=== PATIENT | female | born 1975 | race Caucasian/White ===

== ENCOUNTER 2016-12-16 12:49 | Emergency (ER) | payer MEDICAID ==
[2016-12-16 12:49] VITALS: BMI 24.7
[2016-12-16 12:55] VITALS: BP 134/85; PULSE 85; RESP 18; TEMP 97.9; O2SAT 98
--- NOTE | 2016-12-16 13:59 | RAD ---
PROCEDURE: Radiographs of the Lumbar Spine. HISTORY: upper lumbar pain s/p fall, ecchymosis COMPARISON: Lumbar spine radiographs performed 10/15/13, lumbar spine as seen on CT performed 07/08/15 FINDINGS: BONES: Alignment appears satisfactory. No listhesis. No acute displaced fracture identified. DISC SPACES: Unremarkable. OTHER FINDINGS: Right upper quadrant surgical clips. Moderate constipation. IMPRESSION: No acute displaced fracture or subluxation identified. Moderate constipation. Right upper quadrant surgical clips.
--- NOTE | 2016-12-16 14:38 | C.PDOC ---
History Of Present Illness 41 year old female presents to the ED with complaints of lower back pain that radiates to the right side since yesterday. Patient states while at work, she tripped over a broom and fell on her back. She denies numbness, tingling, or other complaints at this time. Time Seen by Provider: 12/16/16 13:05 Chief Complaint (Nursing): Back Pain History Per: Patient History/Exam Limitations: no limitations Onset/Duration Of Symptoms: Days (1 day ) Current Symptoms Are (Timing): Still Present Quality Of Discomfort: "Pain" Previous Symptoms: None Associated Symptoms: None Recent travel outside of the [place]: No Past Medical History Reviewed: Historical Data, Nursing Documentation, Vital Signs Vital Signs: Last Vital Signs Temp 97.9 F 12/16/16 12:54 Pulse 85 12/16/16 12:54 Resp 18 12/16/16 12:54 BP 134/85 12/16/16 12:54 Pulse Ox 98 12/16/16 15:55 - Medical History PMH: Asthma, Back Problems (Herniated Disc), Gall Bladder Disease, Kidney Stones (Right Kidney (2013)), Chronic Kidney Disease Surgical History: Cholecystectomy (2009) - [facility] Procedures ESOPHAGOGASTRODUODENOSCOPY [EGD] W/CLOSED BIOPSY (09/24/14) PHYSICAL THERAPY NEC (09/24/13) Family History: States: Unknown Family Hx - Social History Hx Tobacco Use: Yes Hx Alcohol Use: No Hx Substance Use: No - Immunization History Hx Tetanus Toxoid Vaccination: No Hx Influenza Vaccination: No Hx Pneumococcal Vaccination: No Review Of Systems Constitutional: Negative for: Fever, Chills Cardiovascular: Negative for: Chest Pain Respiratory: Negative for: Shortness of Breath Gastrointestinal: Negative for: Nausea, Vomiting Musculoskeletal: Positive for: Back Pain Physical Exam - Physical Exam Appears: Well, Non-toxic, No Acute Distress Skin: Warm, Dry, Ecchymosis (midline lumbar area ) Head: Atraumatic, Normacephalic Eye(s): bilateral: Normal Inspection Back: Vertebral Tenderness (lumbar midline tenderness with ecchymosis ), Other ( Tenderness to the coccyx) Extremity: Normal ROM Neurological/Psych: Oriented x3, Normal Speech, Normal Cognition, Normal Motor, Normal Sensation Gait: Steady ED Course And Treatment O2 Sat by Pulse Oximetry: 98 (room air ) - Other Rad LS spine X-Ray X-Ray: Viewed By Me, Read By Radiologist Interpretation: FINDINGS: BONES: Alignment appears satisfactory. No listhesis. No acute displaced fracture identified. DISC SPACES: Unremarkable. OTHER FINDINGS: Right upper quadrant surgical clips. Moderate constipation. IMPRESSION: No acute displaced fracture or subluxation identified. Moderate constipation. Right upper quadrant surgical clips. Progress Note: LS spine X-ray was ordered and patient was given Toradol. Medical Decision Making Medical Decision Making: no fx noted on xray, will d/c pt with nsaids and colace for constipation, advise don high fiber diet. Disposition Counseled Patient/Family Regarding: Diagnosis, Need For Followup, Rx Given - Disposition Referrals: Shaik Bowens MD [Staff Provider] - Disposition: HOME/ ROUTINE Disposition Time: 14:36 Condition: IMPROVED Additional Instructions: Follow up with your doctor next week. Take ibuprofen (with food) as prescribed. Cold compress to lower back several times a day. Avoid heavy lifting. Return to ER for any worsening symptoms. 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 - Scribe Statement The provider has reviewed the documentation as recorded by the Scribe Sonia Post All medical record entries made by the [place] were at my direction and personally dictated by me. I have reviewed the chart and agree that the record accurately reflects my personal performance of the history, physical exam, medical decision making, and the department course for this patient. I have also personally directed, reviewed, and agree with the discharge instructions and disposition.
== END 2016-12-16 14:50 | disposition home or self-care (01) ==
LOC: C.ER 12:49
DX: M54.5 Low back pain (principal); W10.9XXA Fall (on) (from) unspecified stairs and steps, initial encounter
CPT/HCPCS: 72100; 96372; 99283; J1885

== ENCOUNTER 2017-06-22 09:16 | Emergency (ER) | payer MEDICAID ==
[2017-06-22 09:16] VITALS: BMI 24.7
[2017-06-22 09:48] VITALS: PULSE 93; TEMP 98; O2SAT 100
[2017-06-22] MEDS ORDERED: Albuterol 0.083% Inhal Sol (2.5 mg/3 mL) UD INH STA (09:54)
--- NOTE | 2017-06-22 09:54 | C.PDOC ---
History Of Present Illness 42 year old female with PMHx of asthma presents to the ED for evaluation of her asthma worsening. Patient reports she noted increased use of her inhaler over the past 4 days, patient reports she went to her PMD 2 days ago who placed her on inhaler steroid. Patient reports no improvement to her symptoms, she has been using her inhaler 4 times more than usual. Patient states she has trouble mechanically operating her steroid inhaler. Patient thinks the change in weather affected her asthma. Patient denies fever, chills, nausea, vomit, admissions for asthma. Time Seen by Provider: 06/22/17 09:46 Chief Complaint (Nursing): Chest Pain History Per: Patient History/Exam Limitations: no limitations Onset/Duration Of Symptoms: Days Current Symptoms Are (Timing): Gone Initiating Event: Upper Respiratory Illness Quality: Other Exacerbating Factor(s): Exertion Current Respiratory Medications: See Home Med List Reports Recently: Treated By A Physician Recent travel outside of the [place]: No Additional History Per: Patient Past Medical History Vital Signs: Last Vital Signs Temp 98.0 F 06/22/17 09:46 Pulse 93 H 06/22/17 11:02 Resp 18 06/22/17 11:02 BP 124/82 06/22/17 11:02 Pulse Ox 100 06/22/17 11:02 - Medical History PMH: Asthma, Back Problems (Herniated Disc), Gall Bladder Disease, Kidney Stones (Right Kidney (2013)), Chronic Kidney Disease Surgical History: Cholecystectomy (2009) - [facility] Procedures ESOPHAGOGASTRODUODENOSCOPY [EGD] W/CLOSED BIOPSY (09/24/14) PHYSICAL THERAPY NEC (09/24/13) Family History: States: Unknown Family Hx - Social History Hx Tobacco Use: Yes Hx Alcohol Use: No Hx Substance Use: No - Immunization History Hx Tetanus Toxoid Vaccination: No Hx Influenza Vaccination: No Hx Pneumococcal Vaccination: No Review Of Systems Constitutional: Negative for: Fever, Chills ENT: Negative for: Mouth Swelling, Throat Pain Respiratory: Positive for: Cough, Shortness of Breath Gastrointestinal: Negative for: Nausea, Vomiting, Abdominal Pain Skin: Negative for: Rash Neurological: Negative for: Weakness, Numbness Physical Exam - Physical Exam Appears: Non-toxic, Other (Mild respiratory distress) Skin: Normal Color, Warm, Dry Head: Atraumatic, Normacephalic Eye(s): bilateral: Normal Inspection Ear(s): Bilateral: Normal Nose: No Discharge, No Deformity Oral Mucosa: Moist Throat: Normal, No Erythema, No Exudate Neck: Normal ROM, Supple Chest: Symmetrical Cardiovascular: Rhythm Regular, No Murmur Respiratory: Wheezing (B/L faint inspiratory and expiratory), Other (decreased air movement ) Gastrointestinal/Abdominal: Soft, No Tenderness, No Guarding, No Rebound Extremity: Normal ROM, No Tenderness, No Swelling Neurological/Psych: Oriented x3 Gait: Steady ED Course And Treatment ECG: Interpreted By Me, Viewed By Me ECG Rhythm: Sinus Rhythm Interpretation Of ECG: Normal intervals, normal axis, no acute ST or T wave changes Rate From EC O2 Sat by Pulse Oximetry: 100 (ON RA) Pulse Ox Interpretation: Normal Medical Decision Making Medical Decision Making: Impression: mild asthma exacerbation Plan: * Albuterol 5 mg INH * Prednisone 60 mg PO * Nebulizer treatment Disposition - Disposition Referrals: [facility] [Outside] Disposition: HOME/ ROUTINE Disposition Time: 20:36 Condition: GOOD Prescriptions: predniSONE [predniSONE Tab] 20 mg PO DAILY #5 tab Instructions: Asthma in Adults Forms: [facility] (Upper Sorbian), Work Excuse Print Language: TAJIK - Clinical Impression Clinical Impression: Asthma - Scribe Statement The provider has reviewed the documentation as recorded by the Scribe Zachary Mcwilliams All medical record entries made by the Scribe were at my direction and personally dictated by me. I have reviewed the chart and agree that the record accurately reflects my personal performance of the history, physical exam, medical decision making, and the department course for this patient. I have also personally directed, reviewed, and agree with the discharge instructions and disposition.
[2017-06-22] MEDS ORDERED: Albuterol 0.083% Inhal Sol (2.5 mg/3 mL) UD ONE (10:06)
[2017-06-22 11:02] VITALS: BP 124/82; RESP 18
== END 2017-06-22 11:03 | disposition home or self-care (01) ==
LOC: C.ER 09:16
DX: J45.909 Unspecified asthma, uncomplicated (principal)

== ENCOUNTER 2017-11-18 14:29 | Emergency (ER) | payer MEDICAID ==
[2017-11-18 14:29] VITALS: BMI 24.7
[2017-11-18] MEDS ORDERED: Sodium Chloride 0.9% 1,000 ML IV ONE (14:45)
--- NOTE | 2017-11-18 15:02 | C.PDOC ---
History Of Present Illness 42 y/o female, with Hx of chronic back pain, presents to ED c/o back pain and right sided abdominal pain for the last 4 days. Notes pain in intermittent but is worse today after lifting heavy objects. She reports associated nausea and dizziness. Denies fever, or other complaints. Time Seen by Provider: 11/18/17 14:39 Chief Complaint (Nursing): Abdominal Pain History Per: Patient History/Exam Limitations: no limitations Past Medical History Reviewed: Historical Data, Nursing Documentation, Vital Signs Vital Signs: Last Vital Signs Temp 98.0 F 11/18/17 17:01 Pulse 68 11/18/17 17:01 Resp 16 11/18/17 17:01 BP 116/81 11/18/17 17:01 Pulse Ox 100 11/18/17 17:01 - Medical History PMH: Asthma, Back Problems (Herniated Disc), Gall Bladder Disease (GB removed), Kidney Stones (Right Kidney (2013)), Chronic Kidney Disease Surgical History: Cholecystectomy (2009) - [facility] Procedures ESOPHAGOGASTRODUODENOSCOPY [EGD] W/CLOSED BIOPSY (09/24/14) PHYSICAL THERAPY NEC (09/24/13) Family History: States: Unknown Family Hx - Social History Hx Tobacco Use: Yes Hx Alcohol Use: No Hx Substance Use: No - Immunization History Hx Tetanus Toxoid Vaccination: No Hx Influenza Vaccination: Yes Hx Pneumococcal Vaccination: Yes Review Of Systems Except As Marked, All Systems Reviewed And Found Negative. Constitutional: Negative for: Fever, Chills Cardiovascular: Negative for: Chest Pain Respiratory: Negative for: Shortness of Breath Gastrointestinal: Positive for: Nausea, Abdominal Pain. Negative for: Diarrhea , Constipation Genitourinary: Negative for: Dysuria, Frequency, Incontinence, Hematuria Musculoskeletal: Positive for: Back Pain Neurological: Positive for: Dizziness. Negative for: Weakness, Numbness, Headache Physical Exam - Physical Exam Appears: Non-toxic, No Acute Distress Skin: Normal Color, Warm, Dry Head: Atraumatic, Normacephalic Eye(s): bilateral: Normal Inspection Oral Mucosa: Moist Neck: Normal ROM, Supple Cardiovascular: Rhythm Regular Respiratory: Normal Breath Sounds, No Rales, No Rhonchi, No Wheezing Gastrointestinal/Abdominal: Soft, Tenderness (mild right side of abdomen), No Guarding, No Rebound Back: CVA Tenderness (mild right) Extremity: Normal ROM, No Pedal Edema Neurological/Psych: Oriented x3, Normal Speech ED Course And Treatment - Laboratory Results Result Diagrams: 11/18/17 15:01 11/18/17 15:01 Lab Interpretation: Normal O2 Sat by Pulse Oximetry: 99 Pulse Ox Interpretation: Normal - CT Scan/US No standard instances Other Rad Studies (CT/US): Read By Radiologist, Radiology Report Reviewed CT/US Interpretation: FINDINGS: LOWER THORAX: Unremarkable. LIVER: Hepatic steatosis is noted without evidence of focal lesion. GALLBLADDER AND BILE DUCTS : Status post cholecystectomy. PANCREAS: Unremarkable. No gross lesion or ductal dilatation. SPLEEN: Unremarkable. ADRENALS: Unremarkable. No mass. KIDNEYS AND URETERS: Unremarkable. No hydronephrosis. No solid mass. VASCULATURE: Unremarkable. No aortic aneurysm. BOWEL: Unremarkable. No obstruction. No gross mural thickening. APPENDIX: Unremarkable. Normal appendix. PERITONEUM: Unremarkable. No free fluid. No free air. LYMPH NODES: Unremarkable. No enlarged lymph nodes. BLADDER: Unremarkable. REPRODUCTIVE : Unremarkable. BONES: No acute fracture. OTHER FINDINGS: None. IMPRESSION : No evidence of nephrolithiasis or hydronephrosis. No evidence of acute pathology in the abdomen and pelvis. Progress Note: Treated with IVF NSS and toradol. On re-evaluation abdomen soft , in no distress Reassessment Condition: Improved Medical Decision Making Medical Decision Making: Plan: Blood work Urinalysis Abd & Pelvis CT Toradol, IV fluids Disposition Counseled Patient/Family Regarding: Studies Performed, Diagnosis, Need For Followup, Rx Given - Disposition Referrals: Satish Dupont MD [Staff Provider] - Disposition: HOME/ ROUTINE Disposition Time: 16:45 Condition: STABLE Additional Instructions: Return to ED if any increase symptoms Prescriptions: Naproxen [Naprosyn] 1 tab PO BID PRN #25 tab PRN Reason: Pain Instructions: Acute Abdomen (Belly Pain), Adult (DC) Forms: [facility] (Armenian) - POA Present On Arrival: None - Clinical Impression Clinical Impression: Abdominal pain - 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 - Scribe Statement The provider has reviewed the documentation as recorded by the Scribe KP All medical record entries made by the Scribe were at my direction and personally dictated by me. I have reviewed the chart and agree that the record accurately reflects my personal performance of the history, physical exam, medical decision making, and the department course for this patient. I have also personally directed, reviewed, and agree with the discharge instructions and disposition.
[2017-11-18 15:04] LABS: BASO # 0.1 K/uL (0.0-0.2); BASO % 0.8 % (0.0-2.0); EOS # 0.5 K/uL (0.0-0.7); EOS % 7.1 % (0.0-4.0); HEMOGLOBIN 12.3 g/dL (11.0-16.0); LYMPH # 2.5 K/uL (1.0-4.3); LYMPH % 33.3 % (20.0-40.0); MEAN CELL VOLUME 87.7 fL (81.0-99.0); MEAN CORPUSCULAR HEMOGLOBIN 29.5 pg (27.0-31.0); MEAN CORPUSCULAR HGB CONC 33.6 g/dL (33.0-37.0); MEAN PLATELET VOLUME 9.5 fL (7.2-11.7); MONO # 0.5 K/uL (0.0-0.8); MONO % 7.3 % (0.0-10.0); NEUT # 3.8 K/uL (1.8-7.0); NEUT % 51.5 % (50.0-75.0); RBC 4.17 Mil/uL (3.80-5.20); RED CELL DISTRIBUTION WIDTH 14.4 % (11.5-14.5); WHITE BLOOD COUNT 7.5 K/uL (4.8-10.8)
[2017-11-18] MEDS ORDERED: Sodium Chloride 0.9% 1,000 ML ONE (15:09)
[2017-11-18 15:16] LABS: ALB/GLOB RATIO 1.4 (1.0-2.1); ALBUMIN 4.2 g/dL (3.5-5.0); ALT/SGPT 32 U/L (9-52); AST/SGOT 17 U/L (14-36); BLOOD UREA NITROGEN 11 mg/dL (7-17); CALCIUM 9.2 mg/dl (8.6-10.4); GFR AFRICAN-AMERICAN > 60; GFR NON-AFRICAN AMERICAN > 60; LIPASE 134 U/L (23-300)
[2017-11-18 15:20] LABS: SQUAMOUS EPITHIAL 6 /hpf (0-5); URINE BACTERIA RARE (<OCC); URINE BILIRUBIN NEGATIVE (NEGATIVE); URINE BLOOD NEGATIVE (NEGATIVE); URINE CLARITY Hazy (Clear); URINE COLOR Yellow (YELLOW); URINE GLUCOSE (UA) NORMAL (Normal); URINE HYALINE CAST 0-2 /lpf (0-2); URINE LEUKOCYTE ESTERASE 1+ Leu/uL (Negative); URINE PROTEIN NEGATIVE (NEGATIVE); URINE UROBILINOGEN NORMAL mg/dL (0.2-1.0)
[2017-11-18 15:21] LABS: HCG,QUALITATIVE URINE NEGATIVE (NEGATIVE)
--- NOTE | 2017-11-18 16:27 | CT ---
Date of service: 11/18/2017 PROCEDURE: CT Abdomen and Pelvis without intravenous contrast HISTORY: Pain COMPARISON: Comparison is made to the previous study dated 07/08/2015 TECHNIQUE: Axial and reformatted coronal and sagittal CT images of the abdomen and pelvis were obtained without IV or oral contrast administration.. Contrast dose: 0 Radiation dose: Total exam DLP = 493.39 mGy-cm. This CT exam was performed using one or more of the following dose reduction techniques: Automated exposure control, adjustment of the mA and/or kV according to patient size, and/or use of iterative reconstruction technique. FINDINGS: LOWER THORAX: Unremarkable. LIVER: Hepatic steatosis is noted without evidence of focal lesion. GALLBLADDER AND BILE DUCTS: Status post cholecystectomy. PANCREAS: Unremarkable. No gross lesion or ductal dilatation. SPLEEN: Unremarkable. ADRENALS: Unremarkable. No mass. KIDNEYS AND URETERS: Unremarkable. No hydronephrosis. No solid mass. VASCULATURE: Unremarkable. No aortic aneurysm. BOWEL: Unremarkable. No obstruction. No gross mural thickening. APPENDIX: Unremarkable. Normal appendix. PERITONEUM: Unremarkable. No free fluid. No free air. LYMPH NODES: Unremarkable. No enlarged lymph nodes. BLADDER: Unremarkable. REPRODUCTIVE: Unremarkable. BONES: No acute fracture. OTHER FINDINGS: None. IMPRESSION: No evidence of nephrolithiasis or hydronephrosis. No evidence of acute pathology in the abdomen and pelvis.
[2017-11-18 17:02] VITALS: BP 116/81; PULSE 68; RESP 16; TEMP 98
[2017-11-18 17:54] VITALS: O2SAT 99
== END 2017-11-18 17:01 | disposition home or self-care (01) ==
LOC: C.ER 14:29
DX: R10.9 Unspecified abdominal pain (principal); N18.9 Chronic kidney disease, unspecified; Z72.0 Tobacco use
CPT/HCPCS: 74176; 80053; 81001; 83690; 84703; 85025; 96361; 96374; 99285; J1885; J7030

== ENCOUNTER 2017-11-28 11:50 | Emergency (ER) | payer MEDICAID ==
[2017-11-28 11:50] VITALS: BMI 24.7
[2017-11-28 12:02] VITALS: RESP 16
[2017-11-28] MEDS ORDERED: Sodium Chloride 0.9% 1,000 ML IV STA (13:39)
[2017-11-28 13:55] LABS: BASO # 0.1 K/uL (0.0-0.2); EOS # 0.5 K/uL (0.0-0.7); HEMOGLOBIN 13.3 g/dL (11.0-16.0); LYMPH # 2.4 K/uL (1.0-4.3); LYMPH % 34.5 % (20.0-40.0); MEAN CELL VOLUME 87.5 fL (81.0-99.0); MEAN CORPUSCULAR HEMOGLOBIN 29.5 pg (27.0-31.0); MEAN CORPUSCULAR HGB CONC 33.8 g/dL (33.0-37.0); MEAN PLATELET VOLUME 9.8 fL (7.2-11.7); MONO # 0.4 K/uL (0.0-0.8); MONO % 6.4 % (0.0-10.0); NEUT # 3.5 K/uL (1.8-7.0); NEUT % 51.1 % (50.0-75.0); NRBC % 0.1 % (0.0-2.0); RBC 4.51 Mil/uL (3.80-5.20); RED CELL DISTRIBUTION WIDTH 14.1 % (11.5-14.5); WHITE BLOOD COUNT 6.8 K/uL (4.8-10.8)
[2017-11-28 14:04] LABS: URINE BILIRUBIN NEGATIVE (NEGATIVE); URINE BLOOD 3+ (NEGATIVE); URINE CLARITY CLOUDY (Clear); URINE COLOR ORANGE (YELLOW); URINE GLUCOSE (UA) NEGATIVE (Normal)
[2017-11-28] MEDS ORDERED: Sodium Chloride 0.9% 1,000 ML ONE (14:04)
[2017-11-28 14:05] LABS: HCG,QUALITATIVE URINE NEGATIVE (NEGATIVE); URINE LEUKOCYTE ESTERASE NEGATIVE Leu/uL (Negative); URINE PROTEIN 1+ mg/dL (NEGATIVE); URINE UROBILINOGEN 0.2 mg/dL (0.2-1.0)
[2017-11-28 14:11] LABS: SQUAMOUS EPITHIAL 1 /hpf (0-5)
--- NOTE | 2017-11-28 14:37 | C.PDOC ---
History Of Present Illness 42 y/o F c PMHx chronic back pain p/w R sided flank pain radiating to R sided abdomen x 14 days, sharp, severe, gradually worsening, associated with nausea. Denies fever, chills, chest pain, dyspnea, vomiting, diarrhea, constipation, dysuria. On period currently. Patient here 10 days ago for same pain, had negative CT. Time Seen by Provider: 11/28/17 13:31 Chief Complaint (Nursing): Abdominal Pain Past Medical History Vital Signs: Last Vital Signs Temp 98.3 F 11/28/17 12:00 Pulse 64 11/28/17 12:00 Resp 16 11/28/17 12:00 BP 131/87 11/28/17 12:00 Pulse Ox 99 11/28/17 15:59 - Medical History PMH: Asthma, Back Problems (Herniated Disc), Gall Bladder Disease (GB removed), Kidney Stones (Right Kidney (2013)), Chronic Kidney Disease Surgical History: Cholecystectomy (2009) - [facility] Procedures ESOPHAGOGASTRODUODENOSCOPY [EGD] W/CLOSED BIOPSY (09/24/14) PHYSICAL THERAPY NEC (09/24/13) Family History: States: Unknown Family Hx - Social History Hx Tobacco Use: Yes Hx Alcohol Use: No Hx Substance Use: No - Immunization History Hx Tetanus Toxoid Vaccination: No Hx Influenza Vaccination: Yes Hx Pneumococcal Vaccination: Yes Review Of Systems Except As Marked, All Systems Reviewed And Found Negative. Constitutional: Negative for: Fever Cardiovascular: Negative for: Chest Pain Physical Exam - Physical Exam Additional Physical Exam Comments: Constitutional: No acute distress. Head: Normocephalic. Atraumatic. Eyes: PERRL. ENT: Moist mucous membranes. Neck: Supple. Cardiovascular: Regular rate. Radial pulse 2+ bilaterally. Chest: No tenderness. Respiratory: Clear to auscultation bilaterally. GI: Soft. (+) RLQ tenderness. Nondistended. Back: R CVA tenderness. Musculoskeletal: No tenderness or swelling of extremities. Skin: No rash. Neurologic: Alert, no focal deficit. ED Course And Treatment - Laboratory Results Result Diagrams: 11/28/17 13:48 11/28/17 13:48 O2 Sat by Pulse Oximetry: 99 Medical Decision Making Medical Decision Making: CT performed last week negative. Will send for US to evaluate for torsion vs cyst. Findings: Uterus: 8.6 x 4.3 x 5.0 centimeters. Heterogeneous echotexture. Anteverted. Endometrium measures 0.5 centimeters, within normal limits. Nabothian cysts noted at the level of the cervix. No free fluid in the pelvic cul-de-sac. Right ovary: 3.0 x 1.9 x 2.6 centimeters. Normal flow. Left ovary: 3.2 x 2.2 x 2.9 centimeters. Normal flow. Hypoechoic follicle/cyst measuring 8 x 6 x 7 millimeters. Impression: Unremarkable sonographic evaluation of the pelvis. Left ovarian follicle/ cyst measuring up to .8 centimeters. Nabothian cysts at the level of cervix. Offered patient CT with contrast but she declined. F/u PMD, return to ED for worsening pain, fever, vomiting, dyspnea, or any other problem. Disposition - Disposition Disposition: HOME/ ROUTINE Disposition Time: 16:03 Condition: STABLE Prescriptions: Acetaminophen [Tylenol 325mg tab] 2 tab PO Q4H #30 tab Ibuprofen [Motrin] 600 mg PO Q6 #25 tab Ondansetron ODT [Zofran ODT] 4 mg PO Q8 #12 odt Instructions: Low Back Pain (DC) Forms: [facility] (Estonian), Work Excuse - Clinical Impression Clinical Impression: Back pain
[2017-11-28 15:07] LABS: ALB/GLOB RATIO 1.4 (1.0-2.1); ALBUMIN 4.7 g/dL (3.5-5.0); ALT/SGPT 34 U/L (9-52); AST/SGOT 23 U/L (14-36); BLOOD UREA NITROGEN 8 mg/dL (7-17); CALCIUM 9.6 mg/dl (8.6-10.4); GFR NON-AFRICAN AMERICAN > 60; LIPASE 171 U/L (23-300)
--- NOTE | 2017-11-28 16:04 | US ---
Pelvic ultrasound History: Pelvic pain. Comparison: None available. Technique: Real-time sonography was performed through the pelvis utilizing transabdominal and transvaginal technique. Findings: Uterus: 8.6 x 4.3 x 5.0 centimeters. Heterogeneous echotexture. Anteverted. Endometrium measures 0.5 centimeters, within normal limits. Nabothian cysts noted at the level of the cervix. No free fluid in the pelvic cul-de-sac. Right ovary: 3.0 x 1.9 x 2.6 centimeters. Normal flow. Left ovary: 3.2 x 2.2 x 2.9 centimeters. Normal flow. Hypoechoic follicle/cyst measuring 8 x 6 x 7 millimeters. Impression: Unremarkable sonographic evaluation of the pelvis. Left ovarian follicle/ cyst measuring up to .8 centimeters. Nabothian cysts at the level of cervix.
[2017-11-28 17:13] VITALS: BP 134/89; PULSE 73; TEMP 98.1; O2SAT 98
== END 2017-11-28 17:13 | disposition home or self-care (01) ==
LOC: C.ER 11:50
DX: M54.9 Dorsalgia, unspecified (principal); N18.9 Chronic kidney disease, unspecified; Z90.49 Acquired absence of other specified parts of digestive tract
CPT/HCPCS: 76830; 76856; 80053; 81001; 83690; 84703; 85025; 87086; 96361; 96374; 96375; 99285; J1885; J2405; J7030

== ENCOUNTER 2018-07-21 14:58 | Emergency (ER) | payer MEDICAID ==
[2018-07-21 14:58] VITALS: BMI 24.7
--- NOTE | 2018-07-21 15:55 | C.PDOC ---
History Of Present Illness 43 y/o female presents to ED complaining of a sharp right flank pain for the past 3 days, radiating to right upper thigh. Patient denies fever, back pain, hematuria, dysuria, nausea, or vomiting. Patient has a history of cholecystec anam. Time Seen by Provider: 07/21/18 15:32 Chief Complaint (Nursing): Abdominal Pain History Per: Patient History/Exam Limitations: no limitations Onset/Duration Of Symptoms: Days Current Symptoms Are (Timing): Still Present Quality Of Discomfort: Sharp Past Medical History Reviewed: Historical Data, Nursing Documentation, Vital Signs Vital Signs: Last Vital Signs Temp 98.2 F 07/21/18 15:10 Pulse 67 07/21/18 15:10 Resp 18 07/21/18 15:10 BP 118/80 07/21/18 15:10 Pulse Ox 100 07/21/18 15:10 - Medical History PMH: Asthma, Back Problems (Herniated Disc), Gall Bladder Disease (GB removed), Kidney Stones (Right Kidney (2013)), Chronic Kidney Disease Surgical History: Cholecystectomy (2009) - [facility] Procedures ESOPHAGOGASTRODUODENOSCOPY [EGD] W/CLOSED BIOPSY (09/24/14) PHYSICAL THERAPY NEC (09/24/13) Family History: States: No Known Family Hx - Social History Hx Tobacco Use: Yes Hx Alcohol Use: Yes Hx Substance Use: No - Immunization History Hx Tetanus Toxoid Vaccination: No Hx Influenza Vaccination: No Hx Pneumococcal Vaccination: No Review Of Systems Except As Marked, All Systems Reviewed And Found Negative. Constitutional: Negative for: Fever, Chills Cardiovascular: Negative for: Chest Pain Respiratory: Negative for: Shortness of Breath Gastrointestinal: Positive for: Other (Right flank pain). Negative for: Nausea, Vomiting, Diarrhea Genitourinary: Negative for: Dysuria, Hematuria Musculoskeletal: Negative for: Back Pain Physical Exam - Physical Exam Appears: Non-toxic, No Acute Distress Skin: Warm, Dry Head: Atraumatic, Normacephalic Eye(s): bilateral: Normal Inspection Oral Mucosa: Moist Neck: Supple Cardiovascular: Rhythm Regular, No Murmur Respiratory: Normal Breath Sounds, No Rales, No Rhonchi, No Wheezing Gastrointestinal/Abdominal: Soft, Tenderness (right flank tenderness), No Guarding, No Rebound Back: No CVA Tenderness Extremity: Bilateral: Atraumatic, Normal ROM Neurological/Psych: Oriented x3, Normal Speech ED Course And Treatment - Laboratory Results Result Diagrams: 07/21/18 16:30 07/21/18 16:30 O2 Sat by Pulse Oximetry: 100 (RA) Pulse Ox Interpretation: Normal - CT Scan/US abd/pel CT Other Rad Studies (CT/US): Read By Radiologist, Radiology Report Reviewed CT/US Interpretation: FINDINGS: LUNG BASES: The lung bases appear clear. No pleural effusions are seen. LIVER: There is diffuse hepatic hypoattenuation compatible with fatty infiltration. GALLBLADDER AND BILE DUCTS: S/p cholecystectomy. Surgical clips are noted in the gallbladder fossa. PANCREAS: Unremarkable. SPLEEN: Unremarkable. ADRENAL GLANDS: Unremarkable. KIDNEYS, URETERS, AND BLADDER: The kidneys appear within normal limits. There is no hydronephrosis or hydroureter. No urinary calculi are seen. STOMACH AND BOWEL: Unremarkable appearance of the stomach and bowel. No evidence of bowel obstruction. No evidence suggesting enteritis or colitis. APPENDIX: No evidence of acute appendicitis on CT examination. PERITONEUM: No free fluid. No free air. LYMPH NODES: No lymphadenopathy is evident. REPRODUCTIVE: Uterus and ovaries are unremarkable. VASCULATURE: No evidence of abdominal aortic aneurysm. BONES: No aggressive appearing osseous lesion. No acute osseous pathology evident. IMPRESSION: No acute pathology. Fatty liver. . E lectronically signed on Jul 21, 2018 5:31:02 PM EDT by: Shaun Martinez M.D., RASHARD Certified By ABR & [facility]. Fellowship Trained MRI and CT Specialist Medical Decision Making Medical Decision Making: Plan: --Abd/Pel CT --Labs --UA --Toradol 30 mg IVP --Zofran 4 mg IVP Disposition Counseled Patient/Family Regarding: Diagnosis, Need For Followup, Rx Given - Disposition Referrals: Satish Dupont MD [Staff Provider] - Disposition: HOME/ ROUTINE Disposition Time: 18:33 Condition: STABLE Prescriptions: Ibuprofen [Motrin] 600 mg PO TID #20 tab Methocarbamol [Robaxin] 500 mg PO BID 7 Days #18 tab Nitrofurantoin Monohyd/M-Cryst [Macrobid 100 mg Capsule] 100 mg PO BID #6 capsule Instructions: Flank Pain Forms: [facility] (Turkmen), Work Excuse - Clinical Impression Clinical Impression: Flank pain - Scribe Statement The provider has reviewed the documentation as recorded by the Scribe Leda Daus Provider Attestation: All medical record entries made by the Roberto were at my direction and pe rsonally dictated by me. I have reviewed the chart and agree that the record accurately reflects my personal performance of the history, physical exam, medical decision making, and the department course for this patient. I have also personally directed, reviewed, and agree with the discharge instructions and disposition.
[2018-07-21 16:03] LABS: SQUAMOUS EPITHIAL 12 /hpf (0-5); URINE BACTERIA RARE (<OCC); URINE BILIRUBIN NEGATIVE (NEGATIVE); URINE BLOOD NEGATIVE (NEGATIVE); URINE CLARITY Hazy (Clear); URINE COLOR Amber (YELLOW); URINE GLUCOSE (UA) NORMAL (Normal); URINE LEUKOCYTE ESTERASE TRACE Leu/uL (Negative); URINE PROTEIN NEGATIVE (NEGATIVE); URINE UROBILINOGEN NORMAL mg/dL (0.2-1.0)
[2018-07-21 16:41] LABS: BASO % 0.8 % (0.0-2.0); EOS # 0.5 K/uL (0.0-0.7); LYMPH # 2.2 K/uL (1.0-4.3); LYMPH % 34.5 % (20.0-40.0); MEAN CELL VOLUME 87.4 fL (81.0-99.0); MEAN CORPUSCULAR HEMOGLOBIN 29.3 pg (27.0-31.0); MEAN CORPUSCULAR HGB CONC 33.5 g/dL (33.0-37.0); MEAN PLATELET VOLUME 10.2 fL (7.2-11.7); MONO # 0.5 K/uL (0.0-0.8); MONO % 7.7 % (0.0-10.0); NEUT # 3.1 K/uL (1.8-7.0); NRBC % 0.1 % (0.0-2.0); RBC 4.44 Mil/uL (3.80-5.20); RED CELL DISTRIBUTION WIDTH 13.8 % (11.5-14.5); WHITE BLOOD COUNT 6.4 K/uL (4.8-10.8)
[2018-07-21 16:53] LABS: ALB/GLOB RATIO 1.6 (1.0-2.1); ALBUMIN 4.3 g/dL (3.5-5.0); ALT/SGPT 21 U/L (9-52); AST/SGOT 19 U/L (14-36); BLOOD UREA NITROGEN 9 mg/dL (7-17); CALCIUM 9.1 mg/dl (8.6-10.4); GFR NON-AFRICAN AMERICAN > 60; LIPASE 142 U/L (23-300)
[2018-07-21 18:12] VITALS: RESP 18; TEMP 98.2; O2SAT 100
[2018-07-21 18:43] VITALS: BP 124/86; PULSE 74
--- NOTE | 2018-07-22 16:42 | CT ---
CT abdomen and pelvis HISTORY: Right flank pain. Comparison: 11/18/2017 TECHNIQUE: Multiple contiguous axial images were performed through the abdomen and pelvis without the use of intravenous contrast. Subsequently, sagittal and coronal images were obtained. This CT exam was performed using one or more of the following dose reduction techniques: Automated exposure control, adjustment of the mA and/or kV according to patient size, and/or use of iterative reconstruction technique. Findings: 4 millimeter calcified granuloma within the right lobe. Few additional punctate granulomas within the left lung. No pleural or pericardial effusion. Prominent fatty infiltration of the liver. Prior cholecystectomy. Spleen is preserved. 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 Clinical correlation. This is unchanged since the prior study. Adrenal glands are preserved. Pancreas is preserved. Upper abdominal bowel is preserved. Right kidney: No calculi or hydronephrosis. Left Kidney: No calculi or hydronephrosis. Urinary bladder is preserved. Heterogeneous uterus and bilateral adnexa. Underdistended sigmoid colon. Fecal retention in the remainder of the colon. Appendix is visualized and is within normal limits. Few shotty mesenteric and para-aortic nodes. Few shotty inguinal lymph nodes. Osseous structures are grossly preserved. Impression: Negative acute. Few shotty mesenteric and para-aortic lymph nodes, nonspecific. Clinical correlation. Fatty infiltration the liver. Status post cholecystectomy. Additional findings as above. A preliminary report was generated at 5:31 p.m. on 07/21/[address] Shaun Martinez from [employer].
== END 2018-07-21 18:43 | disposition home or self-care (01) ==
LOC: C.ER 14:58
DX: R10.9 Unspecified abdominal pain (principal); Z72.0 Tobacco use
CPT/HCPCS: 74176; 80053; 81001; 83690; 84703; 85025; 96374; 96375; 99284; J1885; J2405